=== PATIENT | male | born 2005 | race Caucasian/White ===

== ENCOUNTER 2023-02-17 12:58 | Emergency (ER) | payer OTHER ==
[~2023-02-17] VITALS: Ht 170.2 cm; Wt 45.4 kg
[2023-02-17 13:24] VITALS: BP 138/93
== END 2023-02-17 15:45 | disposition home or self-care (01) ==
LOC: ER 12:58
DX: R14.0 Abdominal distension (gaseous) (principal)
CPT/HCPCS: 71046; 99283-25; A9270